=== PATIENT | male | born 1960 | race Caucasian/White ===

== ENCOUNTER 2017-12-12 08:58 | Outpatient (CLI) | payer SELFPAY | END 2017-12-12 09:18 | PROVIDERS: PCP Family Medicine; Visit Provider Family Medicine | DX: E11.9 Type 2 diabetes mellitus without complications (principal) | CPT/HCPCS: 36415; 83036 ==

== ENCOUNTER 2019-06-18 02:25 | Outpatient (CLI) | payer MEDICAID, SELFPAY ==
[2019-06-18 07:45] LABS: Abs Immature Grans 0.02 k/cumm (0.0-0.09); Absolute Basophil Count 0.01 k/cumm (0.0-0.2); Absolute Eosinophil Count 0.03 k/cumm (0.0-0.7); Absolute Lymphocyte Count 1.62 k/cumm (1.2-3.4); Absolute Monocyte Count 0.56 k/cumm (0.11-0.7); Absolute Neutrophil Count 2.95 k/cumm (1.2-6.7); Basophils % 0.2; Eosinophils % 0.6; HCT 42.8 % (40.0-50.0); HGB 15.3 g/dL (13.5-17.5); Immature Grans % 0.4 %; Lymphocytes % 31.2; Mean Corp. HGB Concentration 35.7 g/dL (32.0-36.0); Mean Corpuscular Volume 83.9 fL (80-95); Mean Platelet Volume 10.7 fL (8.0-11.0); Monocytes % 10.8; Neutrophils % 56.8; Platelet Count 156 x1000/uL (130-400); RBC Distribution Width 13.2 % (11.8-14.1); White Blood Cell Count 5.19 k/cumm (4.4-10.8)
[2019-06-18 07:59] LABS: Hemoglobin A1C 11.7 % (3.8-5.6)
[2019-06-18 09:12] LABS: ALT 27 U/L (16-63); AST 16 U/L (15-37); Alkaline Phosphatase 91 U/L (46-116); BUN 19 mg/dL (7-18); Bilirubin, Total 0.6 mg/dL (0.2-1.0); CREATININE 1.02 mg/dL (0.70-1.30); Calcium 8.8 mg/dL (8.5-10.1); Calculated LDL 190 mg/dL (<100); Chloride 100 mmol/L (98-107); Cholesterol 236 mg/dL (<200); Glucose 325 mg/dL (74-106); HDL Cholesterol 29 mg/dL (40-60); Potassium 4.7 mmol/L (3.5-5.1); Sodium 137 mmol/L (136-145); Total Protein 6.7 g/dL (6.4-8.2); Triglyceride 85 mg/dL (<150)
== END 2019-06-18 02:45 ==
PROVIDERS: PCP Family Medicine; Visit Provider Family Medicine
DX: E78.5 Hyperlipidemia, unspecified (principal); E11.9 Type 2 diabetes mellitus without complications
CPT/HCPCS: 36415; 80053; 80061; 83036; 85025

== ENCOUNTER 2020-02-03 13:26 | Emergency (ER) | payer MEDICAID, SELFPAY ==
--- NOTE | 2020-02-03 13:30 | DI.RAD_ITS ---
EXAM: XR ANKLE LT COMPLETE CLINICAL HISTORY: Fall, Deformity TECHNIQUE: 2D digital imaging was performed. COMPARISON: No exams were available for comparison FINDINGS: BONES: There is an acute transverse fracture through the medial malleolus. The distal fracture is la terally displaced 2-3 mm. There is a comminuted fracture at the distal diaphysis of the fibula. The fracture is above the level of the mortise. The distal fracture fragment is displaced laterally 1/2 shaft's width. There is also fracture of the posterior lateral aspect of the distal tibia. The fra cture is displaced 2-3 mm laterally. JOINTS:The talus is laterally displaced relative to the tibial plafond. SOFT TISSUE: There is diffuse soft tissue swelling around the ankle particularly medially. IMPRESSION: Distal left tibial and fibular fractures as described above. Please see the above discussion for com plete details. DATA REPOSITORY: RADIATION DOSE DELIVERED:
[2020-02-03 13:31] VITALS: BP 175/98; PULSE 110; RESP 18; TEMP 36.8; O2SAT 97
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
[2020-02-03] MEDS: Acetaminophen 500 MG TAB PO (13:42)
[2020-02-03] MEDS: oxyCODONE 5 mg/Acetaminophen 325 mg TAB 2 TAB PO (15:08)
[2020-02-03 15:21] VITALS: BP 147/90; PULSE 89; RESP 16
[2020-02-04 08:31] LABS: COVID-19 RT-PCR UVMMC Result Negative (Negative)
== END 2020-02-03 15:30 | disposition home or self-care (01) ==
PROVIDERS: Emergency Provider Registered Nurse Emergency; PCP Family Medicine
DX: S82.52XA Displaced fracture of medial malleolus of left tibia, initial encounter for closed fracture (principal); S82.452A Displaced comminuted fracture of shaft of left fibula, initial encounter for closed fracture; W17.81XA Fall down embankment (hill), initial encounter; E11.9 Type 2 diabetes mellitus without complications; Z79.84 Long term (current) use of oral hypoglycemic drugs
CPT/HCPCS: 29515; 99283; U0003; 73610

== ENCOUNTER 2020-02-04 18:34 | Observation (INO) | payer MEDICAID, SELFPAY ==
[2020-02-04 11:55] VITALS: BP 137/90; PULSE 96; RESP 16; TEMP 36.6; O2SAT 93
[2020-02-04] MEDS: Lactated Ringers 1,000 ML 100 ML IV (12:28)
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
[2020-02-04 13:57] LABS: Hemoglobin A1C 8.8 % (<5.7)
[2020-02-04] MEDS: ceFAZolin 2 GM/50 ML BAG IVPB (16:38)
--- NOTE | 2020-02-04 18:25 | DI.RAD_ITS ---
EXAM: XR ANKLE LT COMPLETE CLINICAL HISTORY: displaced Betancur C bimalleolar left ankle fracture TECHNIQUE: 2D and realtime digital imaging was performed. CONTRAST MATERIAL: Refer to procedure report. COMPARISON: CR XR ANKLE LT COMPLETE from 02/03/2020 FINDINGS: Fluoroscopy was provided for Dr. Devine during the performance of a internal fixation of the ankle wi th placement of a syndesmotic screw. Please refer to the procedure report for complete details. Fluoro time: 102.3 seconds IMPRESSION: RADIATION DOSE DELIVERED:
--- NOTE | 2020-02-04 18:40 | PDOC.DSDIS_ITS ---
Discharge Plan Disposition Patient Disposition: HOME Condition: Stable Discharge Details Reason For Visit: FX ANKLE Attending Provider: Pa Devine Primary Care Provider: Kehinde Barbour Home Meds and New Rx's Prescriptions: New aspirin 325 mg tablet,delayed release (DR/EC) 325 mg PO BID 30 Days Qty: 60 RF: 0 naproxen 250 mg tablet 250 - 500 mg PO BID PRN (Reason: Moderate pain or swelling) Qty: 60 RF: 0 oxycodone 5 mg tablet 5 - 10 mg PO Q4H PRN (Reason: moderate to severe pain) Qty: 12 RF: 0 Continued (DME) blood sugar diagnostic [Blood Glucose Test] Strip 1 ea Miscellaneous TID Qty: 100 RF: 11 (DME) blood-glucose meter Misc 1 ea Miscellaneous DIRECTED Qty: 1 RF: 0 (DME) lancets [OneTouch Delica Lancets] 33 gauge misc See Rx Instructions ea Miscellaneous DIRECTED Qty: 100 RF: 0 atorvastatin 40 mg tablet 40 mg PO QHS Qty: 30 RF: 11 metformin 1,000 mg tablet 1,000 mg PO BID Qty: 180 RF: 4 aspirin 325 mg Tablet 650 mg PO BID RF: 0 Discharge Instructions Additional Instructions: Surgery: Left ankle Open reduction internal fixation Activity: Non-weightbearing in splint at all times. Strict elevation at the level of the heart to reduce swelling and discomfort. May wiggle toes to encourage circulation. A physical therapy prescription will be provided separately in the office at follow-up if needed. Prescriptions: Aspirin 325 mg take 1 twice a day to prevent a blood clot for 30 days Naproxen 250 mg take 1-2 every 12 hours with a meal as needed for moderate pain Oxycodone 5 mg take 1-2 every 4-6 hours as needed for severe pain You may use [id number] Tylenol (acetaminophen) as needed for mild pain. These pain medications may be taken all at once or in different combinations as needed. Also, recommend Colace (docusate) as a stool softener as surgery and pain medicine cause constipation. Dressings: Leave splint and dressing in place until follow-up. Keep clean and dry at all times. Follow-up: 10-[address] Devine (02/16/12 at 11:30 AM) Let us know right away if you develop any redness, drainage, fevers, chest pain, or trouble breathing. Do not drink alcohol or drive for at least 24 hours after anesthesia. Please call the office during business hours with any questions or concerns. Referrals: Pa Devine MD [ [facility] STAFF PHYSICIAN] - Equipment/Supplies: Non-Weight Bearing Crutches and Splint Activity:: Elevate Remove Dressings/Wound Care:: Do Not Remove Shower/Bathe:: Cover Diet:: As Tolerated Discharge Orders Discharge Orders: Discharge Order (Routine); Ordered 02/04/20 Ordered By: Pa Devine DS: Diagnosis Discharge Diagnosis (1) Ankle fracture, left: Status: Acute (2) Ankle syndesmosis disruption: Status: Acute
[2020-02-04 18:42] VITALS: BP 160/85; PULSE 81; RESP 17; TEMP 36.3; O2SAT 97
[2020-02-04] MEDS: oxyCODONE 5 MG TAB PO (18:55)
--- NOTE | 2020-02-04 19:02 | W.PM.OP ---
Date of service: 02/04/20 Time of Service: 18:44 Operative Note Operative Note DATE OF PROCEDURE: 02/04/20 PRE-OP DIAGNOSIS: 1. Left bimalleolar displaced ankle fracture 2. Left ankle syndesmotic disruption POST-OP DIAGNOSIS: same PROCEDURE: Left ankle open treatment syndesmosis disruption, CPT # 00032 SURGEON: Pa Devine INSPECTOR CHIEF: Conchis Duarte ANESTHESIA: local and spinal ESTIMATED BLOOD LOSS: 5 TOURNIQUET TIME: 0 COMPLICATIONS: None Patient was transported to: PACU Patient's condition: stable Implants: 50mm 3.5 mm cortex screw Indications: Please see complete medical record for details. Findings: Unstable syndesmosis/ankle mortise. Significant ankle edema with medial sided fracture blisters. Procedure Description: In the operating room, spinal anesthesia was induced. The patient was positioned supine on the operating room table. All bony prominences were well-padded. Preoperative antibiotics were administered. The left ankle was prepped and draped in the usual sterile fashion. The correct patient, procedure, and side of the procedure were all verified prior to incision. As previously discussed, the ankle was inspected. The medial sided fracture blisters from earlier today were more pronounced and more numerous. There is significant ankle generalized edema. The lateral side however was not tense and appeared amenable to an attempt at minimally invasive stabilization so decision was made to proceed with surgery as opposed to close treatment and splinting. The fracture site and syndesmosis levels were isolated under fluoroscopic guidance. A stab incision was used to localize the appropriate level a couple centimeters above the syndesmosis for syndesmotic screw fixation. Traction and inversion was placed on the ankle with some reduction in the Betancur C fibula fracture and baptism of length although not perfect. Syndesmotic screw was drilled under fluoroscopic guidance and a quad cortical fashion. An appropriate length 3.5 mm cortex screw was inserted across the ankle mortise. The ankle was inspected under multiple fluoroscopic views as well as external rotation stress and the fibular shortening, medial clear space, and tib-fib overlap were not felt to be adequate. The screw was removed. Decision was made to extend the incision a few centimeters proximally to the level of the fibula fracture. The fibula fracture was reduced into near anatomic position using bone-holding forceps. An anterior to posterior 3.5 mm lag screw was was placed, but unfortunately owing to soft bone significant comminution did not have near excellent compression or stabilization across the fracture site. He did however maintain length at the fracture site and relative alignment. The screw was left in and another 3.5 mm quad cortical syndesmotic screw was drilled as the fibular reduction changed the prior screw trajectory while maintaining reduction of the ankle mortise, floating heel, and with the foot in neutral position. The same appropriate length screw was then inserted with good fixation strength. Was appropriately tightened under fluoroscopic guidance with excellent reduction of the ankle mortise. External rotation stress views confirmed no widening of the medial clear space or loss of tib-fib overlap. The fibula maintained excellent alignment. The lag screw that was not well fixated and comminution was removed so that it would not impede fracture healing, become loose, or be the source of any problem like infection. 20 cc of 0.25% bupivacaine containing epinephrine was infiltrated about the wound. The fibular fracture site was inspected under ankle motion and there was no change in length or significant loss of reduction with a single syndesmotic screw. The decision was made to omit any additional fixation due to the significant ankle swelling and significant poorly controlled diabetes high risk for complication patient status. The wound was copiously irrigated normal saline. An Esmarch bandage was applied over a blue towel over the foot ankle and leg and left in place for a few minutes to exsanguinate edema. There was improvement after was removed. The lateral incision subcutaneous tissue was closed using 2-0 Monocryl in a buried interrupted fashion. A running horizontal suture was used to close the skin using 3-0 nylon. Xeroform was applied over the lateral incision as well as broadly over the medial ankle fracture blisters that were now flat. Generous 4 x 4 gauze was placed medially and laterally followed by sterile soft roll. The extremities placed into a well-padded well molded short leg AO plaster splint. The patient had been awake for the duration observing the case without complication and was transferred to the recovery room in a stable condition.
== END 2020-02-04 19:35 | disposition home or self-care (01) ==
LOC: MS 18:45
PROVIDERS: Admitting Provider Student in an Organized Health Care Education/Training Program; PCP Family Medicine; Visit Provider Student in an Organized Health Care Education/Training Program
PROC: (CPT 27814; principal; 2020-02-04 14:15)
DX: S82.892A Other fracture of left lower leg, initial encounter for closed fracture (principal); S93.432A Sprain of tibiofibular ligament of left ankle, initial encounter; W17.2XXA Fall into hole, initial encounter; Y99.0 Civilian activity done for income or pay; E11.65 Type 2 diabetes mellitus with hyperglycemia; Z87.891 Personal history of nicotine dependence; E78.5 Hyperlipidemia, unspecified
CPT/HCPCS: 27814; 27829; 36415; 76000; 99223; 73610; 83036; J0690; J2250; J2405

== ENCOUNTER 2020-02-16 14:30 | Outpatient (CLI) | payer MEDICAID, SELFPAY ==
--- NOTE | 2020-02-16 11:30 | DI.RAD_ITS ---
EXAM: XR ANKLE LT COMPLETE CLINICAL HISTORY: ORIF L ankle TECHNIQUE: COMPARISON: CR XR ANKLE LT COMPLETE from 02/03/2020 XR ANKLE LT COMPLETE from 02/04/2020 FINDINGS: Three views were obtained. Previously described tibiofibular fracture is again noted with tibiofibul ar fixation screw in place. Alignment appears unchanged comparison with intraoperative films Novem r . There is question of slight valgus tilt of the talus raising the possibility of ligamentous injury or unstable medial malleolar fracture. Please correlate clinically. IMPRESSION: RADIATION DOSE DELIVERED: Total DLP Total DLP
== END 2020-02-16 14:50 ==
PROVIDERS: PCP Family Medicine; Referring Provider Family Medicine; Visit Provider Physician Assistant
DX: S82.842A Displaced bimalleolar fracture of left lower leg, initial encounter for closed fracture (principal)
CPT/HCPCS: 73610

== ENCOUNTER 2020-03-30 11:53 | Outpatient (CLI) | payer MEDICAID, SELFPAY ==
--- NOTE | 2020-03-30 08:15 | DI.RAD_ITS ---
EXAM: XR ANKLE LT COMPLETE CLINICAL HISTORY: L ankle fx. TECHNIQUE: 2D digital imaging was performed. COMPARISON: CR XR ANKLE LT COMPLETE from 02/16/2020 FINDINGS: Fractures of the medial malleolus and distal fibula are again noted as is the syndesmotic screw. The re is some lucency around the syndesmotic screw in the fibula which has increased from the prior stud y. There is no increased lucency around the course of the screw within the tibial metaphysis. Medial malleolus fracture exhibits minimal change. Posterior malleolus is intact. The fracture in t he fibula above the level of the screw appears unchanged. Talar dome appears unremarkable. IMPRESSION: DATA REPOSITORY: RADIATION DOSE DELIVERED:
== END 2020-03-30 12:13 ==
PROVIDERS: PCP Family Medicine; Visit Provider Physician Assistant
DX: S82.52XA Displaced fracture of medial malleolus of left tibia, initial encounter for closed fracture (principal); S82.492A Other fracture of shaft of left fibula, initial encounter for closed fracture
CPT/HCPCS: 73610

== ENCOUNTER 2020-04-22 01:05 | Outpatient (CLI) | payer MEDICAID, SELFPAY ==
[2020-04-22 13:01] LABS: Hemoglobin A1C 6.9 % (<5.7)
== END 2020-04-22 01:06 | disposition home or self-care (01) ==
LOC: LOS 01:05
PROVIDERS: Student in an Organized Health Care Education/Training Program; PCP Nurse Practitioner Family; Visit Provider Nurse Practitioner Family
DX: E11.9 Type 2 diabetes mellitus without complications (principal)
CPT/HCPCS: 36415; 83036

== ENCOUNTER 2020-04-26 11:07 | Outpatient (CLI) | payer MEDICAID, SELFPAY ==
--- NOTE | 2020-04-26 10:45 | DI.RAD_ITS ---
EXAM: XR ANKLE LT COMPLETE CLINICAL HISTORY: L ankle ORIF TECHNIQUE: 2D digital imaging was performed. COMPARISON: CR XR ANKLE LT COMPLETE from 02/03/2020 CR XR ANKLE LT COMPLETE from 03/30/2020 CR XR ANKLE LT COMPLETE from 03/30/2020 FINDINGS: BONES: There is a stable comminuted fracture of the distal shaft of the left fibula. No change in al ignment of the orthopedic hardware seen. There does appear to be some increased callus formation abo ut the fibular fractures since the prior examination. The distal syndesmotic screws stable. The med ial malleolar fracture remains nonunited. No new fracture or dislocation is seen. No bony destructi ve lesion is seen. JOINTS:The ankle mortise is normally aligned. SOFT TISSUE: There is soft tissue swelling about the ankle. IMPRESSION: Stable alignment of the left ankle. Mild increased callus formation about the distal fibular fractur e. DATA REPOSITORY: RADIATION DOSE DELIVERED:
== END 2020-04-26 11:08 | disposition home or self-care (01) ==
LOC: DIORS 11:08
PROVIDERS: PCP Nurse Practitioner Family; Visit Provider Physician Assistant
DX: S82.492A Other fracture of shaft of left fibula, initial encounter for closed fracture (principal); S82.52XA Displaced fracture of medial malleolus of left tibia, initial encounter for closed fracture
CPT/HCPCS: 73610

== ENCOUNTER 2020-05-06 02:52 | Outpatient (CLI) | payer MEDICAID, SELFPAY ==
[2020-05-06 12:02] LABS: CREATININE 0.9 mg/dL (0.70-1.30); Calculated LDL 46 mg/dL (<100); Cholesterol 105 mg/dL (<200); HDL Cholesterol 27 mg/dL (40-60); Triglyceride 164 mg/dL (<150)
== END 2020-05-06 02:53 | disposition home or self-care (01) ==
LOC: LBO 02:52
PROVIDERS: PCP Nurse Practitioner Family; Visit Provider Nurse Practitioner Family
DX: E11.9 Type 2 diabetes mellitus without complications (principal); E78.5 Hyperlipidemia, unspecified
CPT/HCPCS: 36415; 80061; 82565

== ENCOUNTER 2020-05-24 14:23 | Outpatient (CLI) | payer MEDICAID, SELFPAY ==
--- NOTE | 2020-05-24 10:15 | DI.RAD_ITS ---
EXAM: CLINICAL HISTORY: TECHNIQUE: 2D digital imaging was performed. COMPARISON: No exams were available for comparison FINDINGS: BONES: No acute fracture is present. No bony destructive lesion is seen. There is a tiny well cortic ated osseous density adjacent to the acromion which is likely of no clinical significance. JOINTS: No dislocation present. The AC joint is well maintained. SOFT TISSUE: Normal IMPRESSION: Unremarkable radiographs of the right clavicle. DATA REPOSITORY: RADIATION DOSE DELIVERED:
--- NOTE | 2020-05-24 14:15 | DI.RAD_ITS ---
EXAM: CLINICAL HISTORY: PAIN TECHNIQUE: 2D digital imaging was performed. COMPARISON: CR XR ANKLE LT COMPLETE from 04/26/2020 FINDINGS: BONES: There are stable post operative changes present. No new fracture or dislocation. JOINTS: The joint spaces are well maintained. No joint effusion is present. SOFT TISSUE: Soft tissue swelling about the ankle. IMPRESSION: Stable postoperative changes. DATA REPOSITORY: RADIATION DOSE DELIVERED:
== END 2020-05-24 14:24 | disposition home or self-care (01) ==
LOC: DIORS 14:24
PROVIDERS: PCP Nurse Practitioner Family; Visit Provider Student in an Organized Health Care Education/Training Program
DX: M25.571 Pain in right ankle and joints of right foot (principal); Z98.890 Other specified postprocedural states; M25.511 Pain in right shoulder
CPT/HCPCS: 73000; 73610

== ENCOUNTER 2020-05-31 02:14 | Outpatient (CLI) | payer MEDICAID, SELFPAY ==
[2020-05-31 11:31] LABS: Source Nasal/Nares
[2020-05-31 17:03] LABS: COVID-19 PCR Negative (Negative)
== END 2020-05-31 02:15 | disposition home or self-care (01) ==
LOC: LBO 02:14
PROVIDERS: PCP Nurse Practitioner Family; Visit Provider Student in an Organized Health Care Education/Training Program
DX: Z20.822 Contact with and (suspected) exposure to COVID-19 (principal); Z01.818 Encounter for other preprocedural examination
CPT/HCPCS: 87635

== ENCOUNTER 2020-06-02 06:15 | Day surgery (SDC) | payer MEDICAID, SELFPAY ==
[2020-06-02] VITALS (8 sets, daily range): BP systolic 107–119; BP diastolic 71–80; PULSE 65–85; RESP 14–20; TEMP 36.1–36.8; O2SAT 94–96
--- NOTE | 2020-06-02 07:00 | DI.RAD_ITS ---
EXAM: XR ANKLE LT 2V CLINICAL HISTORY: Ankle syndesmosis disruption, Ankle fracture, left. TECHNIQUE: 2D digital imaging was performed. COMPARISON: No exams were available for comparison FINDINGS: Possibly provided during reduction internal fixation left ankle. Submitted images placement of later al fixation plate across the fibular fracture site and placement of a screw across the medial malleol us fracture site. Total fluoroscopy time 86.2 seconds; cumulative dose 2.14mGy IMPRESSION: DATA REPOSITORY: RADIATION DOSE DELIVERED:
[2020-06-02] MEDS: Lactated Ringers 1,000 ML 100 ML IV (07:05)
[2020-06-02] MEDS: ceFAZolin 2 GM/50 ML BAG IVPB (07:36)
[2020-06-02] MEDS: Ketorolac 15 MG/ML VIAL IV (10:47)
[2020-06-02] MEDS: Acetaminophen 500 MG TAB 1000 MG PO (11:00)
--- NOTE | 2020-06-02 12:53 | PDOC.DSDIS_ITS ---
Discharge Plan Disposition Patient Disposition: HOME Condition: Stable Discharge Details Reason For Visit: Left ankle surgery Attending Provider: Pa Devine Primary Care Provider: Stefano Neves Home Meds and New Rx's Prescriptions: New aspirin 81 mg tablet,delayed release (DR/EC) 81 mg PO BID 30 Days Qty: 60 RF: 0 naproxen 250 mg tablet 250 - 500 mg PO BID PRN (Reason: Moderate pain or swelling) Qty: 30 RF: 0 oxycodone 5 mg tablet 5 - 10 mg PO Q4H PRN (Reason: moderate to severe pain) Qty: 16 RF: 0 Continued (DME) blood-glucose meter Misc 1 ea Miscellaneous DIRECTED Qty: 1 RF: 0 (DME) lancets [OneTouch Delica Lancets] 33 gauge misc See Rx Instructions ea Miscellaneous DIRECTED Qty: 100 RF: 0 (DME) Blood Glucose Test Strip 1 ea Miscellaneous TID Qty: 100 RF: 11 metformin 500 mg tablet 500 mg PO BID Qty: 60 RF: 1 glipizide 5 mg tablet 5 mg PO DAILY Qty: 90 RF: 4 Jardiance 25 mg tablet 25 mg PO DAILY Qty: 90 RF: 3 atorvastatin 40 mg tablet 40 mg PO QHS Qty: 90 RF: 11 Discontinued aspirin 325 mg Tablet 650 mg PO BID RF: 0 Discharge Instructions Additional Instructions: Surgery: Left ankle non-union takedown, bimalleolar ORIF, and removal of syndesmotic screw Activity: Non-weightbearing with crutches. Recommend elevation to minimize swelling discomfort. Please perform daily range of motion to all toes to encourage circulation. A physical therapy prescription will be provided separately in the office at follow-up if needed. Prescriptions: Aspirin 81 mg take 1 twice daily to prevent a blood clot for 30 days Naproxen 250 mg take 1-2 every 12 hours with a meal as needed for moderate pain Oxycodone 5 mg take 1-2 every 4-6 hours as needed for severe pain You may use [id number] Tylenol (acetaminophen) as needed for mild pain. These pain medications may be taken all at once or in different combinations as needed. Also, recommend Colace (docusate) as a stool softener as surgery and pain medicine cause constipation. Dressings: Leave splint and dressing in place until follow-up. Keep clean and dry at all times. Follow-up: 10-[address] Devine (06/15/20 at 10:45 AM) Let us know right away if you develop any redness, drainage, fevers, chest pain, or trouble breathing. Do not drink alcohol or drive for at least 24 hours after anesthesia. Please call the office during business hours with any questions or concerns. Stand Alone Forms: Anesthesia Discharge Inst., Anes.Nerve Block Instructions Referrals: Pa Devine MD [ [facility] STAFF PHYSICIAN] - 06/15/20 10:45 am Equipment/Supplies: Non-Weight Bearing Crutches Activity:: Elevate Remove Dressings/Wound Care:: Do Not Remove Shower/Bathe:: Cover Diet:: Diabetic Discharge Orders Discharge Orders: Discharge Order (Routine); Ordered 06/02/20 Ordered By: Pa Devine DS: Diagnosis Discharge Diagnosis (1) Ankle fracture, left: Status: Acute (2) Ankle syndesmosis disruption: Status: Acute
--- NOTE | 2020-06-02 17:10 | W.PM.OP ---
Date of service: 06/02/20 Time of Service: 08:00 Operative Note Operative Note DATE OF PROCEDURE: 06/02/20 PRE-OP DIAGNOSIS: 1. Left bimalleolar ankle fracture non-union 2. Left ankle syndesmotic screw retained hardware POST-OP DIAGNOSIS: same PROCEDURE: 1. Distal fibula non-union takedown and ORIF, CPT #36333 2. Medial malleolus non-union takedown and ORIF, CPT #37000 3. Removal of syndesmotic screw, CPT #80408 4. Manual stress radiography of ankle joint, CPT #30490: Includes manual stress external rotation evaluation of ankle mortise and syndesmosis as well as direct fibula lateral hook Cotton testing for syndesmotic stability SURGEON: Pa Devine MOTOR VEHICLE INSPECTOR: Georgina Quinonez ANESTHESIA TYPE: Local By Surgeon, General:No Airway and Primary Nerve Block Refer to Anesthesia Record ESTIMATED BLOOD LOSS: 30 TOURNIQUET TIME: 0 COMPLICATIONS: None Patient was transported to: PACU Patient's condition: stable Implants: Synthes 7?hole 1/3 tubular locking plate with 2x 3.5 mm cortical screws about the fracture site and 4x additional 3.5 mm locking screws more proximally distally. 1x 4.5 mm fully threaded cannulated cancellous 72 mm length medial malleolus lag screw Indications: Please see complete medical record for details. Procedure Description: In the operating room, general anesthesia was induced. The patient was positioned supine on the operating room table. All bony prominences were well-padded. Preoperative antibiotics were administered. The left ankle was prepped and draped in the usual sterile fashion. The correct patient, procedure, and side of the procedure were all verified prior to incision. The planned lateral incision site about the previous lateral incision was preinjected with 1% lidocaine containing epinephrine. Sharp dissection was carried through the prior incision down to the retained syndesmotic screw and also exposing the distal fibula nonunion fracture site more proximally. There is abundant soft tissue scarring about the subcutaneous tissues that were sharply elevated anteriorly and proximally to the fibula taking care to maintain a single layer of tissue. Bovie cautery was not used to maintain healthy viable tissue for later healing given patient comorbidities especially poorly controlled diabetes and prior nonunion. Elevation was used to raise scar tissue and periosteum proximally distally in a similar fashion. The fracture site had abundant fibrinous tissue about the bone ends and gross motion especially of the proximal aspect of the distal fibula. The distal aspect of distal fibula was well secured through the syndesmotic screw to the tibia at the level syndesmosis. This syndesmotic screw was removed in entirety without issue manually with a screwdriver. The fracture ends were then exposed and significant care was taken to sharply remove fibrinous tissue exposing healthy bleeding bone ends. A rongeur was used to remove soft callus and scar tissue. The bone ends were then each recannulized using the 2.5 mm drill. Once adequate nonunion takedown was complete, bone clamps were used to provisionally reduce the fracture site taking care to maintain length and rotation alignment. An appropriately selected 7?hole plate omitting the central hole was centered about the fracture site. A bicortical cortex screw was placed immediately approximately compressing plate to bone with appropriate alignment proximally distally. The bone clamp was then used in attempt to achieve compression across the fracture with the plate in place, but was not optimally positioned. Instead, the plate was reduced to the distal fibula and an eccentrically drilled 3.5 mm cortex screw placed immediately distal to the fracture site. The clamp was removed as the screw was final tightened with excellent compression of plate to bone and then lastly bone ends at the fracture site. Fluoroscopy confirmed appropriate fracture reduction, reduction of any fracture gap, and adequate alignment of the distal tib-fib joint and ankle mortise not accounting for the moderately space medial malleolus fracture nonunion. The locking guide was then used to place an additional 2 proximal and distal 3.5 mm locking screws. All hardware was confirmed to be appropriately placed under fluoroscopic visualization. The ankle mortise was then inspected for syndesmotic stability after fibula fixation and retained syndesmotic screw having been removed for month after initial injury. There was no significant widening or loss of reduction of the tib-fib joint or any appreciable lateral translation of the talus relative to the distal tibia. The medial clear space was difficult to evaluate given the medially displaced medial malleolus nonunion. In addition to the usual dorsiflexion manual external rotation stress x-rays that were done, a direct lateral hook stress test with a bone clamp or cotton test was performed as well without any significant or appreciable syndesmotic instability. The decision was made to omit any additional syndesmotic fixation at this time. Attention was then turned to the medial malleolus nonunion. Planned incision site was preinjected with 1% lidocaine containing epinephrine. Longitudinal incision centered over the fracture site and extending to the tip of the malleolus was made. Spreading dissection was used to approach the tip of the malleolus and fracture site. Careful retraction anteriorly and posteriorly retracted tendon, nerve, and vein. The fracture site was gapped and cleared in a similar fashion sharply about the nonunion edges, which were not nearly as fresh appearing as the distal fibula fracture. There was no healing tissue, scarring, or soft callus about this nonunion site. Both ends were carefully debrided with rongeur and elevator so there would be adequate bleeding exposed bone for healing. The drill was then used to localize clamp holding locations proximally and distally to the fracture site. Unfortunately, the bone about the medial malleolus was extremely soft and clamps could not be positioned with appropriate compression over the nonunion site. Instead, the fracture was provisionally reduced and maintained manually while a 2.5 mm drill was directed perpendicular to the fracture site from the distal aspect of the medial malleolus centrally into the distal tibia centrally under fluoroscopic guidance. A single 4.0 mm solid partially-threaded cancellous screw similar to the usual except somewhat longer at 50 mm was selected inserted along the same path from the tip of the medial malleolus into the distal tibia. There was minimal purchase in the distal tibia and the screw was unable to achieve any adequate compression over the fracture site so it was removed. Given the poor bone quality of this possibly more chronic medial malleolus nonunion, the decision was made to try a larger screw. A 4.5 mm cancellous screw set was available so the guidewire was placed in the trajectory of the previously drilled path, which was inspected under fluoroscopic guidance and confirmed to be appropriately central toward the lateral more proximal distal tibia. The guidewire was advanced into bicortical position. The length of the bicortical screw was 80 mm, which was not an available length so the far cortex was not screwed. The decision was made not to drill from 2.5 mm to 3.2 mm over the guidewire for the 4.5 millimeter screw given the poor bone quality after prior screw fixation. Instead, the 4.5 mm drill was used to open the tip of the medial malleolus passing just across the fracture site in order to lag by technique. The maximal length 72 mm 4.5 mm cannulated fully threaded screw was selected and inserted over the guidewire. The guidewire was removed prior to screw nearing the far cortex to prevent breakage. This screw had excellent fixation about the distal tibia and was carefully compressed sequentially and repeatedly until there was good compression across the fracture site confirmed under fluoroscopic guidance and the screw head was flush with the distal tip of the malleolus. There was still some fracture gap more anteriorly, but this single screw was unable to achieve more compression here without risking losing current fixation. There was no motion of the medial malleolus at the fracture. Given the poor bone quality and larger screw now used, the decision was made to omit additional screw fixation for fear of risking compromising the bone of the medial malleolus. AP, lateral, and mortise fluoroscopy confirmed appropriate reduction and hardware placement about the medial lateral ankle. The ankle mortise is well-maintained without any significant lateral talus translation, medial clear space widening, or loss of tib-fib overlap with stress x-rays. Both medial lateral wounds were copiously irrigated with normal saline. Deep layer was closed laterally using buried 2-0 Monocryl [id number] fashion. Subcutaneous tissue was closed using 2-0 Monocryl in a buried interrupted fashion. The skin was closed using 3-0 nylon in horizontal mattress fashion. Xeroform was applied over both incisions followed by dry gauze, ABD pads and sterile soft roll. The extremity was placed into a short leg plaster splint. The patient awoke from anesthesia without complication and was transferred to the recovery room in a stable condition.
== END 2020-06-02 13:13 | disposition home or self-care (01) ==
PROVIDERS: PCP Nurse Practitioner Family; Visit Provider Student in an Organized Health Care Education/Training Program
PROC: (CPT 20680; principal; 2020-06-02 07:30)
PROC: (CPT 20680; 2020-06-02 07:30)
DX: S82.842A Displaced bimalleolar fracture of left lower leg, initial encounter for closed fracture (principal); E11.9 Type 2 diabetes mellitus without complications; E78.5 Hyperlipidemia, unspecified
CPT/HCPCS: 20680; 27726; 27720; 76000; 76942; 73600; J0690; J1885; J2001; J2250; J3010

== ENCOUNTER 2020-06-14 10:41 | Outpatient (CLI) | payer MEDICAID, SELFPAY ==
[2020-06-15 13:16] LABS: COVID-19 RT-PCR UVMMC Result Negative (Negative)
== END 2020-06-14 10:42 | disposition home or self-care (01) ==
PROVIDERS: PCP Nurse Practitioner Family; Visit Provider Nurse Practitioner Family
DX: Z20.822 Contact with and (suspected) exposure to COVID-19 (principal)
CPT/HCPCS: U0003

== ENCOUNTER 2020-06-15 15:59 | Outpatient (CLI) | payer MEDICAID, SELFPAY ==
--- NOTE | 2020-06-15 15:45 | DI.RAD_ITS ---
EXAM: XR ANKLE LT COMPLETE CLINICAL HISTORY: f/u. TECHNIQUE: 2D digital imaging was performed. COMPARISON: CR XR ANKLE LT COMPLETE from 05/24/2020 FINDINGS: There has been removal of the horizontal syndesmotic screw. There is no lateral fixation plate across the distal fibular fracture site and an oblique screw acros s the medial malleolus fracture site. Satisfactory alignment. There is, however, a distance of 2 mi llimeters between the surfaces medial malleolus fracture site. Talar dome appears unremarkable. No radiographic evidence of hardware loosening nor osteomyelitis. No evidence of obvious osseous tarsal coalition. IMPRESSION: DATA REPOSITORY: RADIATION DOSE DELIVERED:
== END 2020-06-15 16:00 | disposition home or self-care (01) ==
LOC: DIORS 15:59
PROVIDERS: PCP Nurse Practitioner Family; Referring Provider Nurse Practitioner Family; Visit Provider Student in an Organized Health Care Education/Training Program
DX: S82.842D Displaced bimalleolar fracture of left lower leg, subsequent encounter for closed fracture with routine healing (principal)
CPT/HCPCS: 73610

== ENCOUNTER 2020-06-17 02:43 | Outpatient (CLI) | payer MEDICAID, SELFPAY ==
[2020-06-18 14:37] LABS: COVID-19 RT-PCR UVMMC Result Negative (Negative)
== END 2020-06-17 02:44 | disposition home or self-care (01) ==
LOC: LBO 02:43
PROVIDERS: PCP Nurse Practitioner Family; Visit Provider Nurse Practitioner Family
DX: Z20.822 Contact with and (suspected) exposure to COVID-19 (principal)
CPT/HCPCS: U0003

== ENCOUNTER 2020-07-13 11:06 | Outpatient (CLI) | payer MEDICAID, SELFPAY ==
--- NOTE | 2020-07-13 11:18 | DI.RAD_ITS ---
EXAM: XR ANKLE LT COMPLETE CLINICAL HISTORY: f/u. TECHNIQUE: 2D digital imaging was performed. COMPARISON: CR XR ANKLE LT COMPLETE from 06/15/2020 FINDINGS: There is stable position of the hardware comprised of lateral fixation plate across healing fibular f racture site. Also long screw across the medial malleolus fracture site. Fracture line is still sae dent at this level. No widening of the mortise evident on these nonstress views. Talar domes unrema rkable. No obvious widening of the mortise. IMPRESSION: DATA REPOSITORY: RADIATION DOSE DELIVERED:
== END 2020-07-13 11:07 | disposition home or self-care (01) ==
LOC: DIORS 11:06
PROVIDERS: PCP Nurse Practitioner Family; Referring Provider Nurse Practitioner Family; Visit Provider Student in an Organized Health Care Education/Training Program
DX: S82.492D Other fracture of shaft of left fibula, subsequent encounter for closed fracture with routine healing (principal); S82.842D Displaced bimalleolar fracture of left lower leg, subsequent encounter for closed fracture with routine healing
CPT/HCPCS: 73610

== ENCOUNTER 2020-08-31 11:46 | Outpatient (CLI) | payer MEDICAID, SELFPAY ==
--- NOTE | 2020-08-31 11:03 | DI.RAD_ITS ---
Exam(s) XR ANKLE LT COMPLETE EXAM: XR ANKLE LT COMPLETE CLINICAL HISTORY: f/u. TECHNIQUE: 2D digital imaging was performed. COMPARISON: CR XR ANKLE LT COMPLETE from 07/13/2020 FINDINGS: Previously described hardware in the distal fibula is again noted with further healing and no looseni ng. Screws through the medial malleolus fracture site is again noted with nonunion. Talar dome appe ars unremarkable. Small calcific densities seen in the lateral aspect of the ankle joint measuring 4 x 2 millimeters. This is just above the lateral aspect of the talar dome as seen on the oblique vie w. IMPRESSION: DATA REPOSITORY: RADIATION DOSE DELIVERED:
== END 2020-08-31 11:47 | disposition home or self-care (01) ==
LOC: DIORS 11:46
PROVIDERS: PCP Nurse Practitioner Family; Referring Provider Nurse Practitioner Family; Visit Provider Student in an Organized Health Care Education/Training Program
DX: S82.842D Displaced bimalleolar fracture of left lower leg, subsequent encounter for closed fracture with routine healing (principal)
CPT/HCPCS: 73610

== ENCOUNTER 2021-05-17 01:54 | Outpatient (CLI) | payer MEDICAID, SELFPAY ==
[2021-05-17 14:23] LABS: ALT 33 U/L (16-63); AST 17 U/L (15-37); Albumin 4.1 g/dL (3.4-5.0); Alkaline Phosphatase 80 U/L (46-116); Anion Gap 12.6 mmol/L (3-11); BUN 17 mg/dL (7-18); Bilirubin, Total 0.4 mg/dL (0.2-1.0); CO2 24.4 mmol/L (21.0-32.0); CREATININE 0.9 mg/dL (0.70-1.30); Calcium 8.7 mg/dL (8.5-10.1); Chloride 104 mmol/L (98-107); Glucose 185 mg/dL (74-106); Potassium 4.3 mmol/L (3.5-5.1); Sodium 141 mmol/L (136-145); Total Protein 7.1 g/dL (6.4-8.2)
== END 2021-05-17 01:55 | disposition home or self-care (01) ==
LOC: LBO 01:54
PROVIDERS: PCP Nurse Practitioner Family; Visit Provider Nurse Practitioner Family
DX: E11.9 Type 2 diabetes mellitus without complications (principal)
CPT/HCPCS: 36415; 80053

== ENCOUNTER 2022-05-25 01:30 | Outpatient (CLI) | payer MEDICAID, SELFPAY ==
[2022-05-25 12:42] LABS: Calculated LDL 57 mg/dL (<100); Cholesterol 120 mg/dL (<200); HDL Cholesterol 34 mg/dL (40-60); Triglyceride 147 mg/dL (<150)
== END 2022-05-25 01:31 | disposition home or self-care (01) ==
LOC: LOS 01:30
PROVIDERS: PCP Nurse Practitioner Family; Visit Provider Nurse Practitioner Family
DX: E78.5 Hyperlipidemia, unspecified (principal); E11.9 Type 2 diabetes mellitus without complications
CPT/HCPCS: 36415; 80061; 82565; 84132

== ENCOUNTER 2022-12-28 04:37 | Outpatient (CLI) | payer MEDICAID, SELFPAY ==
[2022-12-28 12:16] LABS: Abs Immature Grans 0.03 10^3/uL (0.0-0.06); Absolute Basophil Count 0.03 10^3/uL (0.0-0.2); Absolute Eosinophil Count 0.05 10^3/uL (0.0-0.7); Absolute Lymphocyte Count 0.85 10^3/uL (1.2-3.4); Absolute Monocyte Count 0.71 10^3/uL (0.1-0.8); Absolute Neutrophil Count 5.08 10^3/uL (1.2-6.7); Basophils % 0.4; Eosinophils % 0.7; HCT 42.7 % (40.0-50.0); Immature Grans % 0.4; Lymphocytes % 12.6; MCHC 35.1 % (32.0-36.0); MCV 88 fL (80-95); Monocytes % 10.5; Neutrophils % 75.4; Platelet Count 138 10^3/uL (130-400); RBC 4.84 10^6/uL (4.36-5.78); RDW-SD 42.5 fL; WBC 6.75 10^3/uL (4.4-10.8)
[2022-12-28 12:34] LABS: Iron 57 ug/dL (65-175); Total Iron Binding Capacity 310 ug/dL (250-450)
[2022-12-28 13:02] LABS: Ferritin 307 ng/mL (26-388); TSH (W/Ref FT4) 1.15 uIU/mL (0.36-3.74); Vitamin B12 131 pg/mL (193-986)
[2022-12-31 11:12] LABS: Transferrin 247 mg/dL (201-352)
== END 2022-12-28 04:38 | disposition home or self-care (01) ==
LOC: LOS 04:38
PROVIDERS: PCP Nurse Practitioner Family; Visit Provider Nurse Practitioner Family
DX: R53.83 Other fatigue (principal)
CPT/HCPCS: 36415; 82607; 82728; 83540; 83550; 84443; 84466; 85025

== ENCOUNTER 2023-05-01 02:53 | Outpatient (CLI) | payer MEDICAID, SELFPAY ==
[2023-05-01 13:02] LABS: Vitamin B12 261 pg/mL (193-986)
== END 2023-05-01 02:54 | disposition home or self-care (01) ==
LOC: LOS 02:53
PROVIDERS: PCP Nurse Practitioner Family; Visit Provider Nurse Practitioner Family
DX: D51.8 Other vitamin B12 deficiency anemias (principal)
CPT/HCPCS: 36415; 82607

== ENCOUNTER 2023-11-12 03:04 | Outpatient (CLI) | payer MEDICAID, SELFPAY ==
[2023-11-12 12:21] LABS: ALT 48 U/L (16-63); AST 21 U/L (15-37); Albumin 4.1 g/dL (3.4-5.0); Alkaline Phosphatase 91 U/L (46-116); Anion Gap 8.4 mmol/L (3-11); BUN 16 mg/dL (7-18); Bilirubin, Total 0.68 mg/dL (0.2-1.0); CO2 28.6 mmol/L (21.0-32.0); Calculated LDL 64 mg/dL (<100); Chloride 100 mmol/L (98-107); Cholesterol 149 mg/dL (<200); Estimated GFR 84.05 (mL/min/1.73m2); Glucose 303 mg/dL (74-106); HDL Cholesterol 33 mg/dL (40-60); Potassium 4.2 mmol/L (3.5-5.1); Sodium 137 mmol/L (136-145); Total Protein 6.7 g/dL (6.4-8.2); Triglyceride 263 mg/dL (<150)
== END 2023-11-12 03:05 | disposition home or self-care (01) ==
LOC: LOS 03:04
PROVIDERS: PCP Nurse Practitioner Family; Visit Provider Nurse Practitioner Family
DX: E78.5 Hyperlipidemia, unspecified (principal); F10.10 Alcohol abuse, uncomplicated; E11.9 Type 2 diabetes mellitus without complications; I10 Essential (primary) hypertension
CPT/HCPCS: 36415; 80053; 80061

== ENCOUNTER 2025-03-02 01:27 | Outpatient (CLI) | payer MEDICARE, MEDICAID, SELFPAY ==
[2025-03-02 16:29] LABS: Anion Gap 8.9 mmol/L (3-11); BUN 15 mg/dL (9-23); CO2 25.1 mmol/L (20.0-31.0); Calcium 9.5 mg/dL (8.3-10.6); Chloride 107 mmol/L (98-107); Cholesterol 124 mg/dL (<200); Glucose 206 mg/dL (74-106); HDL Cholesterol 36 mg/dL (>40); Potassium 4.1 mmol/L (3.5-5.1); Sodium 141 mmol/L (136-145)
[2025-03-02 23:11] LABS: PSA, Screening 1.0 ng/mL (<=4.5)
== END 2025-03-02 01:28 | disposition home or self-care (01) ==
LOC: LOS 01:27
PROVIDERS: PCP Nurse Practitioner Family; Visit Provider Nurse Practitioner Family
DX: Z13.220 Encounter for screening for lipoid disorders (principal); I10 Essential (primary) hypertension; Z12.5 Encounter for screening for malignant neoplasm of prostate
CPT/HCPCS: 36415; 80048; 80061; 84153